=== PATIENT | female | born 1980 | race Caucasian/White ===

== ENCOUNTER 2023-07-17 17:29 | Emergency (ER) | payer MEDICAID, SELFPAY ==
--- NOTE | 2023-07-17 17:34 | XRR_ITS ---
PROCEDURE INFORMATION: Exam: XR Right Foot Exam date and time: 07/17/2023 6:43 PM Age: 42 years old Clinical indication: Pain; Foot; Right; Additional info: Injury TECHNIQUE: Imaging protocol: Radiologic exam of the right foot. Views: 3 or more views. COMPARISON: CR (LOW EXM, ) 07/17/2023 6:41 PM FINDINGS: Bones/joints: Normal. Soft tissues: Normal. XR/XR foot RT min 3V* [id number] IMPRESSION: No acute findings.
--- NOTE | 2023-07-17 17:34 | XRR_ITS ---
PROCEDURE INFORMATION: Exam: XR Right Ankle Exam date and time: 07/17/2023 6:41 PM Age: 42 years old Clinical indication: Pain; Ankle; Right; Additional info: Injury TECHNIQUE: Imaging protocol: Radiologic exam of the right ankle. Views: 3 or more views. COMPARISON: No relevant prior studies available. FINDINGS: Bones/joints: Normal. Soft tissues: Normal. XR/XR ankle RT min 3V* [id number] IMPRESSION: No acute findings.
[2023-07-17 17:40] VITALS: BP 118/78; PULSE 118; RESP 16; TEMP 36.9; O2SAT 96; BMI 31.5
--- NOTE | 2023-07-17 18:25 | ED_ITS ---
HPI - Extremity Problem General: Chief complaint: Extremity Injury, Lower Stated complaint: right ankle injury Time Seen by Provider: 07/17/23 18:23 Source: patient Mode of arrival: ambulatory Limitations: no limitations History of Present Illness: 42-year-old female states that she stood up from a car fell she twisted her ankle 2 days ago she been having pain to her right inner ankle. States she had some swelling to she had pain with walking. Denies any other injury she rates her pain a 2 out of 10 is much improved with rest. Associated symptoms: Deny chest pain, fever(s) or rash Review of Systems Const: Denies: fever(s), chills, body aches or change in appetite ENMT: Denies: throat pain or dental pain Card: Denies: chest pain Resp: Denies: dyspnea GI: Denies: abdominal pain, nausea, vomiting or diarrhea Musc: Reports: extremity pain; Denies: neck pain or back pain Skin/Breast: Denies: rash Neuro: Denies: headache(s) Physical Exam Const: COMMON NORMALS: no acute distress, patient oriented x3 and healthy appearing HENMT: COMMON NORMALS: normocephalic and atraumatic HEAD & SCALP: normocephalic and atraumatic Neck/C-Spine: COMMON NORMALS: full ROM and supple Chest: COMMONS NORMALS: normal inspection of the chest Resp: COMMON NORMALS: normal respiratory effort Extremity: COMMON NORMALS: full ROM NARRATIVE EXTREMITY EXAM: Tenderness to right medial ankle slight swelling distal pulses sensation intact Neuro: COMMON NORMALS: patient oriented x3, moves all extremities and no focal motor deficits Psych: COMMON NORMALS: mental status grossly normal, Normal thought process present and cooperative THOUGHT PROCESS: Normal thought process present Skin: COMMON NORMALS: no rashes or lesions noted and no wounds GENERAL SKIN EXAM: no rashes or lesions noted Course Vital Signs: Vital signs: Vital Signs Temperature 98.4 F 07/17/23 17:40 Pulse Rate 118 H 07/17/23 17:40 Respiratory Rate 16 07/17/23 17:40 Blood Pressure 118/78 07/17/23 17:40 Pulse Oximetry 96 07/17/23 17:40 Oxygen Delivery Me thod Room Air 07/17/23 17:40 MDM - Extremity (Nontraumatic) Medical Decision Making Patient presents here with an ankle sprain x-ray shows no fracture we will place an Eloy wrap get her on crutches weight-bear as tolerated she is to follow-up with podiatry return if worsening. No signs of DVT. Lab Data Radiology Impressions Ankle X-Ray 07/17/23 17:34 IMPRESSION: No acute findings. Foot X-Ray 07/17/23 17:34 IMPRESSION: No acute findings. All radiology interpretation(s) finalized by discharge Discharge Plan Discharge Patient Disposition: Home Clinical Impression: Ankle sprain and strain Condition: Stable Discharge Orders: Discharge ED (Routine); Ordered 07/17/23 Ordered By: Katharine Fishman Referrals: Boo Becerril DPM [Physician] - 1-3 days Discharge Diet: Advance as tolerated Discharge Activity: Resume usual activity Patient Instructions: Ankle Sprain (ED) Coding Level of Care Code ED Delivery Person for Marquez Colbert
[2023-07-17 18:27] VITALS: PULSE 100; RESP 16; O2SAT 96
[2023-07-17 19:17] VITALS: PULSE 100; RESP 16; O2SAT 96
--- NOTE | 2023-07-18 08:28 | DCPLANNER ---
Message sent to Podiatry for DR Becerril/ Ankle Sprain.
== END 2023-07-17 18:39 | disposition home or self-care (01) ==
PROVIDERS: Emergency Provider Emergency Medicine
DX: S93.401A Sprain of unspecified ligament of right ankle, initial encounter (principal); S96.911A Strain of unspecified muscle and tendon at ankle and foot level, right foot, initial encounter; X50.1XXA Overexertion from prolonged static or awkward postures, initial encounter
CPT/HCPCS: 73610; 73630; 99283; E0114